=== PATIENT | female | born 1985 | race Caucasian/White ===

== ENCOUNTER 2018-01-21 12:59 | Emergency (ER) | payer MEDICAID ==
[2018-01-21 12:59] VITALS: BMI 29.7
[2018-01-21 13:25] VITALS: RESP 18
--- NOTE | 2018-01-21 13:41 | C.PDOC ---
History Of Present Illness 32 F w/ no PMHx presents to ED for 2 days of dizziness and nausea. Pt states symptoms began suddently and are persistent throughout the day. Dizziness is characterized as room is spinning. Pt states she took at home test t hat was negative but is unsure of the result. 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 Patient denies chest pain, SOB, abdominal pain, vomiting, dysuria, hematuria, bowel changes. <Almas Iraheta - Last Filed: 01/21/18 15:16> Patient was seen and exaamined and I agree with above report. <Bernadette Bonds - Last Filed: 01/21/18 15:30> <Alams Iraheta - Last Filed: 01/21/18 15:16> <Bernadette Bonds - Last Filed: 01/21/18 15:30> Time Seen by Provider: 01/21/18 13:29 Chief Complaint (Nursing): Medical Clearance Past Medical History Vital Signs: Last Vital Signs Temp 98.1 F 01/21/18 13:20 Pulse 68 01/21/18 13:20 Resp 18 01/21/18 13:20 BP 124/82 01/21/18 13:20 Pulse Ox 100 01/21/18 13:20 - Medical History PMH: Back Problems, Chronic Pain - [facility] Procedures MANUAL REMOVAL-PLACENTA (09/19/14) OTHER INSTILLATION (03/15/13) Family History: States: Unknown Family Hx - Social History Hx Tobacco Use: Yes Hx Alcohol Use: No Hx Substance Use: Yes - Immunization History Hx Tetanus Toxoid Vaccination: No Hx Influenza Vaccination: No Hx Pneumococcal Vaccination: No <Alams Iraheta - Last Filed: 01/21/18 15:16> Vital Signs: Last Vital Signs Temp 98.1 F 01/21/18 13:20 Pulse 68 01/21/18 13:20 Resp 18 01/21/18 13:20 BP 124/82 01/21/18 13:20 Pulse Ox 100 01/21/18 13:45 - [facility] Procedures MANUAL REMOVAL-PLACENTA (09/19/14) OTHER INSTILLATION (03/15/13) <VarBernadette tobin Saige - Last Filed: 01/21/18 15:30> Review Of Systems Constitutional: Negative for: Fever, Chills Cardiovascular: Negative for: Chest Pain, Palpitations Respiratory: Negative for: Cough, SOB with Excertion Gastrointestinal: Positive for: Nausea. Negative for: Vomiting, Abdominal Pain, Diarrhea, Constipation Genitourinary: Negative for: Dysuria, Hematuria Neurological: Negative for: Altered Mental Status <Almas Iraheta - Last Filed: 01/21/18 15:16> Physical Exam - Physical Exam Appears: Well, Non-toxic, No Acute Distress Skin: Normal Color Nose: Normal Oral Mucosa: Moist Tongue: Normal Appearing Lips: Normal Appearing Chest: Symmetrical, No Deformity Cardiovascular: No Murmur, No JVD, Other (Regular rate ) Respiratory: Normal Breath Sounds, No Decreased Breath Sounds, No Accessory Muscle Use, No Rales Gastrointestinal/Abdominal: Normal Exam, Bowel Sounds, Soft, No Tenderness Extremity: Normal ROM, No Tenderness, No Pedal Edema, No Calf Tenderness Neurological/Psych: Oriented x3, Normal Speech, Normal Cognition, Normal Motor <Lorraine Irahetas Tiffany - Last Filed: 01/21/18 15:16> ED Course And Treatment O2 Sat by Pulse Oximetry: 100 <Almas Iraheta - Last Filed: 01/21/18 15:16> - Laboratory Results Result Diagrams: 01/21/18 14:08 01/21/18 14:08 Lab Interpretation: No Acute Changes Urine POC: Negative ECG: Interpreted By Me ECG Rhythm: Sinus Rhythm ECG Interpretation: No Acute Changes Reevaluation Time: 15:29 Reassessment Condition: Improved (Patient remains asymptomatic in ED.) <Bernadette Bonds - Last Filed: 01/21/18 15:30> Disposition <IrahetaAlmas Tiffany - Last Filed: 01/21/18 15:16> Counseled Patient/Family Regarding: Studies Performed, Diagnosis, Need For Followup - Disposition Disposition Time: 15:13 <Bernadette Bonds - Last Filed: 01/21/18 15:30> - Disposition Referrals: [facility] [Outside] Disposition: HOME/ ROUTINE Condition: IMPROVED Instructions: Drug Abuse and Drug Addiction (DC), Dizziness, Nonvertigo, (DC) Forms: [employer] (Maltese) - Clinical Impression Clinical Impression: Substance abuse, Dizziness
[2018-01-21 13:47] LABS: HCG,QUALITATIVE URINE NEGATIVE (NEGATIVE)
[2018-01-21 13:49] LABS: SQUAMOUS EPITHIAL 7 /hpf (0-5); URINE BACTERIA RARE (<OCC); URINE BILIRUBIN NEGATIVE (NEGATIVE); URINE BLOOD NEGATIVE (NEGATIVE); URINE CLARITY Hazy (Clear); URINE COLOR Amber (YELLOW); URINE GLUCOSE (UA) NORMAL (Normal); URINE LEUKOCYTE ESTERASE NEG Leu/uL (Negative); URINE PROTEIN NEGATIVE (NEGATIVE)
[2018-01-21 14:13] LABS: BASO # 0.1 K/uL (0.0-0.2); BASO % 1.2 % (0.0-2.0); EOS # 0.2 K/uL (0.0-0.7); EOS % 1.3 % (0.0-4.0); HEMOGLOBIN 15.7 g/dL (11.0-16.0); LYMPH # 2.9 K/uL (1.0-4.3); LYMPH % 24.6 % (20.0-40.0); MEAN CORPUSCULAR HEMOGLOBIN 29.4 pg (27.0-31.0); MEAN CORPUSCULAR HGB CONC 34.1 g/dL (33.0-37.0); MEAN PLATELET VOLUME 10.9 fL (7.2-11.7); MONO # 0.9 K/uL (0.0-0.8); MONO % 7.5 % (0.0-10.0); NEUT # 7.6 K/uL (1.8-7.0); NEUT % 65.4 % (50.0-75.0); NRBC % 0.1 % (0.0-2.0); RBC 5.35 Mil/uL (3.80-5.20); RED CELL DISTRIBUTION WIDTH 13.2 % (11.5-14.5); WHITE BLOOD COUNT 11.7 K/uL (4.8-10.8)
[2018-01-21 14:38] LABS: ALB/GLOB RATIO 1.1 (1.0-2.1); ALBUMIN 3.8 g/dL (3.5-5.0); ALT/SGPT 43 U/L (9-52); AST/SGOT 42 U/L (14-36); BLOOD UREA NITROGEN 11 mg/dL (7-17); CALCIUM 9.2 mg/dl (8.6-10.4); GFR NON-AFRICAN AMERICAN > 60
[2018-01-21 15:16] VITALS: BP 116/79; PULSE 78; TEMP 98; O2SAT 100
--- NOTE | 2018-01-22 12:48 | CARD ---
APPROVED REPORT Date of service: 01/21/2018 EKG Measurement Heart [id number] <Conclusion> Normal sinus rhythm Normal ECG
== END 2018-01-21 15:16 | disposition home or self-care (01) ==
LOC: C.ER 12:59
DX: F19.10 Other psychoactive substance abuse, uncomplicated (principal); R42 Dizziness and giddiness